=== PATIENT | male | born 1950 | race Caucasian/White ===

== ENCOUNTER → 2017-01-10 | Outpatient (CLI) | payer MEDICARE ==
--- NOTE | 2017-01-10 16:38 | US ---
EXAMINATION TYPE: US liver DATE OF EXAM: 01/10/2017 COMPARISON: NONE CLINICAL HISTORY: K76.9 Elevated liver enzymes. Elevated LFT's EXAM MEASUREMENTS: Liver Length: 14.3 cm Gallbladder Wall: 0.2 cm CBD: 0.4 cm Right Kidney: 9.3 x 4.6 x 4.8 cm Pancreas: wnl, tail Liver: Heterogeneous, otherwise appeared wnl Gallbladder: Small probable gravel stones, slightly contracted, pt states he is NPO Evidence for sonographic Stout's sign: No CBD: wnl Right Kidney: wnl IMPRESSION: 1. Cholelithiasis
== END | disposition home or self-care (01) ==
LOC: RADUSWWP 09:59
PROVIDERS: ATTEND Family Medicine
DX: K80.20 Calculus of gallbladder without cholecystitis without obstruction (principal)
CPT/HCPCS: 76705

== ENCOUNTER 2017-03-14 07:42 | Day surgery (SDC) | payer MEDICARE, OTHER ==
[2017-03-10 10:47] VITALS: BMI 23.0
[~2017-03-14 07:42] MED LIST: DEXAMETHASONE SOD PHOSPHATE 10 MG/ML 1 ML VIAL IV ONE; HEPARIN SODIUM,PORCINE 5,000 UNIT/ML 1 ML VIAL SQ ONE; LACTATED RINGERS 1,000 ML IV SCH; MIDAZOLAM 2 MG/2 ML VIAL IV PRN; MORPHINE SULFATE 4 MG/ML SYRINGE IV PRN; ONDANSETRON 4 MG/2 ML VIAL IVP ONE; ceFAZolin IN SWFI 2 GM/20 ML SYRINGE IVP ONE
[2017-03-14] MEDS ORDERED: LIDOCAINE 1% 20 ML VIAL (10MG/ML) FOR IV START INTRADERMA ONE (08:53)
--- NOTE | 2017-03-14 09:07 | P.GSHP ---
History of Present Illness H&P Date: 03/14/17 Chief Complaint: Right upper quadrant pain This is a 66-year-old male referred from Dr. Rishi Davila. Patient had complaints of right upper quadrant pain. He had an ultrasound performed showed evidence of cholelithiasis. He presents today for laparoscopic cholecystectomy. Past Medical History Past Medical History: Coronary Artery Disease (CAD), GERD/Reflux, Myocardial Infarction ([place]) Additional Past Medical History / Comment(s): hiatal hernia, gallstones, Last Myocardial Infarction Date:: 2013 History of Any Multi-Drug Resistant Organisms: None Reported Past Surgical History: Coronary Bypass/CABG, Heart Catheterization Additional Past Surgical History / Comment(s): CABG 2013, Past Anesthesia/Blood Transfusion Reactions: No Reported Reaction Past Psychological History: No Psychological Hx Reported Smoking Status: Former smoker Past Alcohol Use History: Occasional Additional Past Alcohol Use History / Comment(s): quit smoking 2013, started smokimg age 21 Past Drug Use History: None Reported - Past Family History Sister(s) Family Medical History: Cancer Medications and Allergies Home Medications Medication Instructions Recorded Confirmed Type Aspirin 81 mg PO DAILY 03/10/17 03/10/17 History Atorvastatin [Lipitor] 80 mg PO HS 03/10/17 03/10/17 History Metoprolol Tartrate [Lopressor] 25 mg PO BID 03/10/17 03/10/17 History amLODIPine BESYLATE [Norvasc] 2.5 mg PO DAILY 03/10/17 03/10/17 History Allergies Allergy/AdvReac Type Severity Reaction Status Date / Time No Known Allergies Allergy Verified 03/10/17 10:33 Surgical - Exam Vital Signs Temp Pulse Resp BP Pulse Ox 97.9 F 58 L 18 163/83 98 03/14/17 08:36 03/14/17 08:36 03/14/17 08:36 03/14/17 08:36 03/14/17 08:36 - General well developed, no distress - Eyes PERRL - ENT normal pinna - Neck no masses - Respiratory normal expansion - Cardiovascular Rhythm: regular - Abdomen Abdomen: soft, non tender Assessment and Plan Assessment: Right upper quadrant pain. Cholelithiasis We'll perform laparoscopic cholecystectomy.
[2017-03-14] MEDS ORDERED: SUCCINYLCHOLINE CHLORIDE 100 MG/5 ML SYR IV ONE (09:24)
[2017-03-14] MEDS ORDERED: fentaNYL (PF) 50 MCG/ML 2 ML AMP ONE (09:24)
[2017-03-14] MEDS ORDERED: MIDAZOLAM 2 MG/2 ML VIAL ONE (09:24)
[2017-03-14] MEDS ORDERED: GLYCOPYRROLATE 0.2 MG/ML 2 ML VIAL ONE ×2 (09:24)
[2017-03-14] MEDS ORDERED: LIDOCAINE 1% INJ 10MG/ML (20 ML MDV) ONE (09:24)
[2017-03-14] MEDS ORDERED: PROPOFOL 10 MG/ML 20 ML VIAL IV ONE (09:24)
[2017-03-14] MEDS ORDERED: ePHEDrine SULFATE/0.9% NACL/PF 50 MG/5 ML SYRINGE IV ONE (09:24)
[2017-03-14] MEDS ORDERED: ROCURONIUM BROMIDE 10 MG/ML 10 ML VIAL IV ONE (09:24)
[2017-03-14] MEDS ORDERED: NEOSTIGMINE 1 MG/ML 10 ML VIAL ONE (09:24)
[2017-03-14] MEDS ORDERED: BUPIVACAINE-EPI 0.5%-1:200,000 10 ML VIAL SQ ONE (09:46)
[2017-03-14] MEDS: HYDROmorphone 4 MG/ML 1 ML SYRINGE IVP ONE ×2 (10:20→10:25)
[2017-03-14 10:32] VITALS: TEMP 97.3
[2017-03-14 10:36] VITALS: RESP 16
--- NOTE | 2017-03-14 10:39 | P.OP ---
Date of Procedure: 03/14/17 Preoperative Diagnosis: Cholelithiasis Right upper quadrant pain Postoperative Diagnosis: Chronic cholecystitis Cholelithiasis Procedure(s) Performed: Laparoscopic cholecystectomy Anesthesia: NILA Surgeon: Pedro Manuel Estimated Blood Loss (ml): 5 Pathology: other (Gallbladder) Condition: stable Disposition: PACU Description of Procedure: The patient was placed on the operating table. The patient received a general endotracheal tube anesthesia. The patients abdomen was prepped and draped in the usual sterile fashion. Through an infraumbilical stab incision, the fascia of the anterior abdominal wall was grasped with a pair of Kochers and then the Veress needle was placed in the peritoneal cavity. Position of the Veress needle was confirmed with positive drop test. The abdomen was then insufflated. After adequate insufflation, the 10 mm trocar was placed in the peritoneal cavity. Following this the laparoscope was placed in the peritoneal cavity. The patient was placed in the head-up, right side up position and then a 5 mm trocar was placed in the right lateral and right subcostal position under direct visualization. A 8 mm trocar was placed in the epigastric position. The gallbladder was grasped in the fundus and infundibulum. Traction on the gallbladder was placed in the lateral and the cephalad positions. The triangle of Calot was visualized.. The cystic duct was bluntly dissected until the union of the cystic duct and common bile duct was seen. The cystic duct was then divided and sealed with the Harmonic scissors. A PDS Endoloop was then placed throughout the cystic duct stump. The cystic artery divided and sealed with the Harmonic scissors. The gallbladder was then removed from the liver bed using Harmonic scissors. The gallbladder was then extracted through the epigastric port site. Operative field was checked for any bleeding spots and Harmonic scissors was used to coagulate the liver bed. The abdomen was irrigated. The trocars were removed. The skin was closed using interrupted 3-0 Vicryl suture. Dermabond dressing were applied. The patient tolerated the procedure well.
[2017-03-14] MEDS ORDERED: LACTATED RINGERS 1,000 ML IV ONE (11:04)
[2017-03-14 12:17] VITALS: BP 164/80; PULSE 58
== END 2017-03-14 12:30 | disposition home or self-care (01) ==
LOC: OR 07:42 → EDSEX 08:00 → MERGE 08:00 → OR 12:30
PROVIDERS: ATTEND Surgery
DX: K80.10 Calculus of gallbladder with chronic cholecystitis without obstruction (principal); K44.9 Diaphragmatic hernia without obstruction or gangrene; K21.9 Gastro-esophageal reflux disease without esophagitis; I25.10 Atherosclerotic heart disease of native coronary artery without angina pectoris; I10 Essential (primary) hypertension; Z87.891 Personal history of nicotine dependence; E78.5 Hyperlipidemia, unspecified; I25.2 Old myocardial infarction; Z95.1 Presence of aortocoronary bypass graft; Z79.82 Long term (current) use of aspirin; Z79.899 Other long term (current) drug therapy
CPT/HCPCS: 88304; 47562; J2250; J1644; J1100; J2710; J0690; J2405; J2001; J3010; J0330; J2704; J1170

== ENCOUNTER → 2017-12-03 | Outpatient (CLI) | payer MEDICARE ==
--- NOTE | 2017-12-03 09:13 | US ---
EXAMINATION TYPE: US liver DATE OF EXAM: 12/03/2017 COMPARISON: 01/10/2017 CLINICAL HISTORY: 67-year-old male R94.5 Elevated Liver Function. Gallbladder removed TECHNIQUE: Multiple sonographic images of the right upper quadrant are obtained. FINDINGS: EXAM MEASUREMENTS: Liver Length: 15.4 cm Gallbladder: removed CBD: 0.4 cm Right Kidney: 10.1 x 5.3 x 5.6 cm Pancreas: obscured by overlying midline bowel gas Liver: Echogenic and attenuating. The secondary limits assessment for focal lesion. Gallbladder: removed Evidence for sonographic Stout's sign: no CBD: visualized portions wnl, limited by overlying bowel gas Right Kidney: wnl IMPRESSION: 1. Moderate to severe hepatic steatosis. Correlate with LFTs, lipid profile, and patient risk factors . 2. Status post cholecystectomy. No biliary ductal dilatation.
== END | disposition home or self-care (01) ==
LOC: RADUSWWP 07:54
PROVIDERS: ATTEND Family Medicine
DX: K76.0 Fatty (change of) liver, not elsewhere classified (principal); Z90.49 Acquired absence of other specified parts of digestive tract
CPT/HCPCS: 76705

== ENCOUNTER → 2020-06-23 | Outpatient (CLI) | payer MEDICARE ==
--- NOTE | 2020-06-23 13:19 | US ---
EXAMINATION TYPE: US duplex aorta DATE OF EXAM: 06/23/2020 COMPARISON: NONE CLINICAL HISTORY: 70-year-old male Z13.6 Screening AAA,I25.83 CAD. TECHNIQUE: Multiple sonographic images of the abdominal aorta are obtained. FINDINGS: EXAM MEASUREMENTS: Abdominal Aorta: Proximal: obscured by overlying bowel content Mid: 2.1 x 1.6cm Distal: 2.1 x 1.7cm Bifurcation: RT: 1.1 x 1.0cm LT: 1.1 x 1.1cm Rn [facility] notes: Technical limitations due to large amount of overlying bowel content. IMPRESSION: Exam limitations due to overlying bowel gas. The proximal abdominal aorta is obscured and could not b e assessed. No evidence for AAA within the mid or distal portions.
== END | disposition home or self-care (01) ==
LOC: RADUSWWP 09:44
PROVIDERS: ATTEND Family Medicine
DX: Z13.6 Encounter for screening for cardiovascular disorders (principal)
CPT/HCPCS: 93979

== ENCOUNTER → 2023-04-15 | Outpatient (CLI) | payer MEDICARE ==
--- NOTE | 2023-04-19 12:13 | MR ---
EXAMINATION TYPE: MR liver wo/w con DATE OF EXAM: 04/15/2023 7:16 AM CLINICAL INDICATION:Male, 72 years old with history of E80.7 ELEVATED BILIRUBIN; Elevated bilirubin. COMPARISON: Ultrasound 12/03/2017 TECHNIQUE: Multiplanar multi-sequence imaging was performed without contrast. Post contrast imaging was performed. Post IV contrast subtraction images were also submitted for review. IV Contrast: 8 cc Gadavist FINDINGS: LOWER CHEST: No gross irregularity. Sternotomy with susceptibility artifact ABDOMEN Liver: No evidence for hepatic steatosis or cirrhosis. Signal dropout on chemical shift in phase imag ing. Gallbladder and Bile ducts: No evidence for ductal dilation, or biliary stricture or evidence of chol edocholithiasis. The gallbladder is surgically absent. Dilation of the common bile duct up to 6 mm an d the common hepatic duct measures up to 7 mm in thickness. Pancreas: No ductal dilation. No evidence for solid mass. Spleen: Normal for size.Signal dropout on chemical shift in phase imaging. Adrenal glands: Unremarkable. Kidneys: No evidence for obstructive uropathy. No suspicious renal masses. Stomach and Bowel: No evidence for bowel wall thickening or evidence for obstruction. Scattered colon ic diverticula are present. Peritoneum: No evidence of pneumoperitoneum or free fluid. Vasculature: No aortic aneurysm. Musculoskeletal: The osseous structures appear intact. Lymph Nodes: No gross evidence for lymphadenopathy. Abdominal wall: Unremarkable. IMPRESSION: 1. No evidence for ductal dilation for acute biliary system process. The extrahepatic and intrahepat ic bile ducts are within normal limits no evidence for choledocholithiasis or biliary stricture. 2. Evidence of iron deposition within the liver and spleen. 3. Colonic diverticulosis.
== END | disposition home or self-care (01) ==
LOC: RADMRIMAIN 06:23
PROVIDERS: ATTEND Family Medicine
DX: K57.30 Diverticulosis of large intestine without perforation or abscess without bleeding (principal); E83.19 Other disorders of iron metabolism; E80.7 Disorder of bilirubin metabolism, unspecified
CPT/HCPCS: 74183; A9585

== ENCOUNTER → 2024-04-28 | Outpatient (CLI) | payer MEDICARE ==
--- NOTE | 2024-04-28 08:20 | MR ---
EXAMINATION TYPE: MR abdomen wo/w con DATE OF EXAM: 04/28/2024 7:42 AM COMPARISON MRI 04/15/2023 CLINICAL INDICATION: Male, 74 years old with history of K76.0 FATTY (CHANGE OF) LIVER R74.01 ELEVATED LEVE; PHH, F/U comparison to prior MRI. Elevated liver enzymes. TECHNIQUE: Multiplanar multi-sequence imaging was performed without contrast. Post contrast imaging was performed. IV Contrast: 8 mL Gadobutrol FINDINGS: FINDINGS: LOWER CHEST: No gross irregularity. Sternotomy with susceptibility artifact ABDOMEN Liver: No evidence for hepatic steatosis or cirrhosis. Signal dropout on chemical shift in phase imag ing. Gallbladder and Bile ducts: No evidence for ductal dilation, or biliary stricture or evidence of chol edocholithiasis. The gallbladder is surgically absent. Dilation of the common bile duct up to 6 mm an d the common hepatic duct measures up to 7 mm in thickness. Pancreas: No ductal dilation. No evidence for solid mass. Spleen: Normal for size.Signal dropout on chemical shift in phase imaging. Adrenal glands: Unremarkable. Kidneys: No evidence for obstructive uropathy. No suspicious renal masses. Stomach and Bowel: No evidence for bowel wall thickening or evidence for obstruction. Scattered colon ic diverticula are present. Peritoneum: No evidence of pneumoperitoneum or free fluid. Vasculature: No aortic aneurysm. Musculoskeletal: The osseous structures appear intact. Lymph Nodes: No gross evidence for lymphadenopathy. Abdominal wall: Unremarkable. IMPRESSION: 1. There remains no evidence for ductal dilation for acute biliary system process. The extrahepatic and intrahepatic bile ducts are within normal limits no evidence for choledocholithiasis or biliary s tricture. 2. Again, Evidence of iron deposition within the liver and spleen. 3. Colonic diverticulosis. [facility], , 04/28/2024 8:17 AM
== END | disposition home or self-care (01) ==
LOC: RADMRIMAIN 06:29
PROVIDERS: ATTEND Family Medicine
DX: K76.0 Fatty (change of) liver, not elsewhere classified (principal); K57.30 Diverticulosis of large intestine without perforation or abscess without bleeding; R74.01 Elevation of levels of liver transaminase levels; E80.7 Disorder of bilirubin metabolism, unspecified
CPT/HCPCS: 74183; A9585